=== PATIENT | male | born 1990 | race Caucasian/White ===

== ENCOUNTER 2024-03-21 15:04 | Outpatient (CLI) | payer OTHER ==
--- NOTE | 2024-03-23 10:15 | MRI Report ---
PROCEDURE: Brain WO INDICATIONS: AMNESIA TECHNIQUE: Noncontrast axial T1 spin echo, axial T2 fast spin echo, sagittal and axial FLAIR, coronal T2 fast sp in echo, axial gradient echo, axial diffusion and ADC through the brain. COMPARISON: None. FINDINGS: Image quality: Excellent. CSF Spaces: Basal cisterns are patent. No extra-axial fluid collections. Ventricles are normal in size and shape. Brain: No intracranial masses or hemorrhage. Cox/white matter interface is normal. Brainstem appe ars normal. Diffusion-weighted images demonstrate no acute ischemic insult. No chronic ischemic ins ults. Normal intravascular flow voids are present. Skull and face: Calvarium has normal marrow signal. Orbits appear normal. Sinuses: Mild diffuse perineal sinus mucosal thickening. Right maxillary sinus mucous retention cysts . Mastoids are clear. IMPRESSION: 1.No cause for patient's symptoms is identified. Normal appearance of the brain. 2.Right maxillary sinus disease. Reviewed by: Jose Lujan MD on 03/23/2024 10:14 AM PDT Approved by: Jose Lujan MD on 03/23/2024 10:14 AM PDT Station ID: [id number]
== END 2024-03-21 15:05 | disposition home or self-care (01) ==
LOC: DI 15:04
PROVIDERS: ATTEND Nurse Practitioner Family
DX: R41.3 Other amnesia (principal); J32.0 Chronic maxillary sinusitis